=== PATIENT | male | born 1980 ===

== ENCOUNTER 2023-03-15 11:34 | Emergency (ER) | payer OTHER ==
[~2023-03-15] VITALS: Ht 157.5 cm; Wt 93.8 kg
[2023-03-15] MEDS ORDERED: CEPHALEXIN500 M1 PO (12:28)
[2023-03-15] MEDS ORDERED: NAPROSYN500 MG PO (12:28)
[2023-03-15] MEDS ORDERED: BACTRIM DS TAB1 EACH PO (12:28)
[2023-03-15 12:43] VITALS: BP 123/80
== END 2023-03-15 12:43 | disposition home or self-care (01) ==
LOC: ED 11:34
DX: L03.031 Cellulitis of right toe (principal)
CPT/HCPCS: 99283